=== PATIENT | female | born 1995 | race African-American/Black ===

== ENCOUNTER 2017-08-13 10:34 | Emergency (ER) | payer OTHER ==
[~2017-08-13] VITALS: Ht 167.6 cm; Wt 59.1 kg
[2017-08-13 10:50] VITALS: BP 122/61; PULSE 92; RESP 16; TEMP 99.1; O2SAT 100
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
== END 2017-08-13 11:36 | disposition home or self-care (01) ==
LOC: NEPK 10:34
DX: S16.1XXA Strain of muscle, fascia and tendon at neck level, initial encounter (principal); V49.59XA Passenger injured in collision with other motor vehicles in traffic accident, initial encounter; Y92.481 Parking lot as the place of occurrence of the external cause
CPT/HCPCS: 99282